=== PATIENT | female | born 1960 | race Caucasian/White ===

== ENCOUNTER 2024-01-15 22:52 | Emergency (ER) | payer SELFPAY ==
[~2024-01-15 22:52] MED LIST: valACYclovir HCL 1,000 MG TABLET ONE
[2024-01-16] MEDS ORDERED: predniSONE 20 MG TAB ONE (03:30)
--- NOTE | 2024-02-29 15:26 | CT ---
EXAM: CT Angiography Head Without and With Intravenous Contrast CLINICAL HISTORY: lt sided numbness TECHNIQUE: Axial computed tomographic angiography images of the head without and with intravenous contrast. CTDI is 42.95 mGy and DLP is 763.35 mGy-cm. This CT exam was performed using one or more of the following dose reduction techniques: automated exposure control, adjustment of the mA and/or kV according to patient size, and/or use of iterative reconstruction technique. MIP reconstructed images were created and reviewed. COMPARISON: No relevant prior studies available. FINDINGS: VASCULATURE: The dural venous sinuses are patent. Right internal carotid artery:No acute findings. Intracranial segment is patent with no significant stenosis. No aneurysm. Right anterior cerebral artery:Unremarkable. No occlusion or significant stenosis. No aneurysm. Right middle cerebral artery:Unremarkable. No occlusion or significant stenosis. No aneurysm. Right posterior cerebral artery:Unremarkable. No occlusion or significant stenosis. No aneurysm. Right vertebral artery:Unremarkable as visualized. Left internal carotid artery:No acute findings. Intracranial segment is patent with no significant stenosis. No aneurysm. Left anterior cerebral artery:Unremarkable. No occlusion or significant stenosis. No aneurysm. Left middle cerebral artery:Unremarkable. No occlusion or significant stenosis. No aneurysm. Left posterior cerebral artery:Unremarkable. No occlusion or significant stenosis. No aneurysm. Left vertebral artery:Unremarkable as visualized. Basilar artery:Unremarkable. No occlusion or significant stenosis. No aneurysm. HEAD: Brain:No acute findings. No hemorrhage. No edema. Normal enhancement. Ventricles:Unremarkable. No ventriculomegaly. Bones/joints:No acute fracture. Soft tissues:Unremarkable. Sinuses:Unremarkable as visualized. No acute sinusitis. Mastoid air cells:Unremarkable as visualized. No mastoid effusion. IMPRESSION: Negative CT angiogram of the head. EXAM: CT Angiography Neck With Intravenous Contrast CLINICAL HISTORY: lt sided numbness TECHNIQUE: Routine carotid CT angiography protocol was performed with intravenous contrast. NASCET criteria using the distal ICAs for comparison were used for evaluation of stenoses. CTDI is 45.95 mGy and DLP is 763.35 mGy-cm. This CT exam was performed using one or more of the following dose reduction techniques: automated exposure control, adjustment of the mA and/or kV according to patient size, and/or use of iterative reconstruction technique. MIP reconstructed images were created and reviewed. COMPARISON: None. FINDINGS: VASCULATURE: Right common carotid artery:Unremarkable. No occlusion or significant stenosis. No dissection. Right internal carotid artery:Unremarkable. Extracranial segment is patent with no occlusion or significant stenosis. No dissection. Right external carotid artery:Unremarkable. No occlusion. Right vertebral artery:Unremarkable. No occlusion or significant stenosis. No dissection. Left common carotid artery:Unremarkable. No occlusion or significant stenosis. No dissection. Left internal carotid artery:Unremarkable. Extracranial segment is patent with no occlusion or significant stenosis. No dissection. Left external carotid artery:Unremarkable. No occlusion. Left vertebral artery:Unremarkable. No occlusion or significant stenosis. No dissection. NECK: Bones/joints: Moderately severe left C5-6 neural foraminal stenosis. No acute fracture. Soft tissues:Unremarkable. Lung apices:Clear. CAROTID STENOSIS REFERENCE USING NASCET CRITERIA: %ICA stenosis = (1 - narrowest ICA diameter/diameter of distal cervical ICA) x 100. Mild - <50%stenosis. Moderate - 50-69%stenosis. Severe - 70-94%stenosis. Near occlusion - 95-99%stenosis. Occluded - 100%stenosis. IMPRESSION: Negative CTA neck. Radiologist: Xena Silva MD Electronically Signed: 01/16/24 02:42 Study ready at 01:53 and initial results transmitted at 02:42 Results also transmitted to Film Room, Film Room @ [phone] (Fax) VOI
== END 2024-01-16 03:45 | disposition home or self-care (01) ==
LOC: EC 22:52
DX: G51.0 Bell's palsy (principal)
CPT/HCPCS: 70496; 70498; 93005; 99284

== ENCOUNTER → 2024-08-30 | Outpatient (CLI) | payer MEDICARE ==
--- NOTE | 2024-08-30 08:44 | MM ---
Reason for Exam: Clinical finding. Last mammogram was performed 17 year(s) and 7 month(s) ago. Patient History: Menarche at age 12. First Full-Term at age 19. Risk Values: Yazmin 5 year model risk: 1.5%. NCI Lifetime model risk: 5.6%. Tissue Density: The breasts are heterogeneously dense, which may obscure small masses. Findings: Analyzed By CAD. There is a l large spiculated mass in the upper outer quadrant of the right breast measuring 3.3 cm with enlarged lymph nodes in the right axilla. Benign appearing calcifications. Overall Assessment: Incomplete: need additional imaging evaluation, BI-RAD 0 Management: Diagnostic Breast Ultrasound of the right breast. . Results were given to the patient verbally at the time of exam. Patient should continue monthly self-breast exams. A clinical breast exam by your physician is recommended on an annual basis. This exam should not preclude additional follow-up of suspicious palpable abnormalities. Note on Yazmin scores and lifetime risk: 1. A Yazmin score greater than 3% is considered moderate risk. If this is the case, consider specialist referral to assess eligibility for a risk reducing agent. 2. If overall lifetime risk for the development of breast cancer is 20% or higher, the patient may qualify for future screening with alternating mammogram and breast MRI. [facility], , 08/30/2024 8:41 AM. Electronically signed and approved by: Valdemar Mckeon M.D. Radiologis
--- NOTE | 2024-08-30 09:21 | USB ---
Reason for Exam: Clinical finding. Patient History: Menarche at age 12. First Full-Term at age 19. Right ovary removed at age 15. Postmenopausal. Risk Values: Yazmin 5 year model risk: 1.5%. NCI Lifetime model risk: 5.6%. Technique: Method: Targeted. Prior Study Comparison: 12/26/2003 Bilateral Screening Mammogram, [facility]. 01/20/2007 Bilateral Screening Mammogram, [facility]. Findings: The upper outer quadrant of the right breast, the axilla of the right breast and the retroareolar of the right breast were scanned. A targeted right upper quadrant of the right breast, axilla and retro-areolar region were reviewed. There is a large spiculated mass corresponding the mammographic abnormality at the level o'clock position 5 cm from the nipple measuring 3 x 2.9 cm highly suspicious. There are multiple lymph nodes in the right axilla felt to be suspicious. Overall Assessment: Highly suggestive of malignancy, BI-RAD 5 Management: Ultrasound Core Biopsy of the right breast. A clinical breast exam by your physician is recommended on an annual basis and results should be correlated with mammographic findings. This exam should not preclude additional follow-up of suspicious palpable abnormalities. Results were given to the patient verbally at the time of exam. [facility], , 08/30/2024 9:17 AM. Electronically signed and approved by: Valdemar Mckeon M.D. Radiologis
== END | disposition home or self-care (01) ==
LOC: RADMAMWWP 08:13
PROVIDERS: ATTEND Family Medicine
DX: R92.1 Mammographic calcification found on diagnostic imaging of breast (principal); R92.333 Mammographic heterogeneous density, bilateral breasts; N63.10 Unspecified lump in the right breast, unspecified quadrant; Z78.0 Asymptomatic menopausal state
CPT/HCPCS: 77062; 77066

== ENCOUNTER → 2024-09-07 | Day surgery (SDC) | payer MEDICARE ==
--- NOTE | 2024-09-07 11:46 | MM ---
Reason for Exam: Post Procedure Mammogram. Last screening mammogram was performed less than 1 month ago. Patient History: Menarche at age 12. First Full-Term at age 19. Right ovary removed at age 15. Postmenopausal. Risk Values: Yazmin 5 year model risk: 1.5%. NCI Lifetime model risk: 5.6%. Prior Study Comparison: 12/26/2003 Bilateral Screening Mammogram, [facility]. 01/20/2007 Bilateral Screening Mammogram, [facility]. 08/30/2024 Bilateral MG 3D diag mammo w/cad [facility], [facility]. Tissue Density: Right: The breasts are heterogeneously dense, which may obscure small masses. Findings: Spiculated mass upper outer quadrant right breast status post biopsy was demonstrated with microclip marker in place. 2 clips are seen within a sampled right axillary lymph node. 2 clips were deployed because one of the clips could not be clearly visualized at ultrasound. Overall Assessment: Highly suggestive of malignancy, BI-RAD 5 Management: Ultrasound Core Biopsy of the right breast. . Results were given to the patient verbally at the time of exam. Patient should continue monthly self-breast exams. A clinical breast exam by your physician is recommended on an annual basis. This exam should not preclude additional follow-up of suspicious palpable abnormalities. Note on Yazmin scores and lifetime risk: 1. A Yazmin score greater than 3% is considered moderate risk. If this is the case, consider specialist referral to assess eligibility for a risk reducing agent. 2. If overall lifetime risk for the development of breast cancer is 20% or higher, the patient may qualify for future screening with alternating mammogram and breast MRI. [facility], , 09/07/2024 11:43 AM. Electronically signed and approved by: Favian Rubalcava M.D. Radiologis
--- NOTE | 2024-09-11 12:20 | USB ---
Risk Values: Yazmin 5 year model risk: 1.5%. NCI Lifetime model risk: 5.6%. Prior Study Comparison: 12/26/2003 Bilateral Screening Mammogram, [facility]. 01/20/2007 Bilateral Screening Mammogram, [facility]. 08/30/2024 Right US breast limited RT, [facility]. 08/30/2024 Bilateral MG 3D diag mammo w/cad [facility], [facility]. Pathology Description: Location: axilla. Marker Left Behind. Needle Type: Celero Cores: 3 Gauge: 12 2 hydromark coils used due to unable to see if first clip deployed. Pathology Description: Location: 11 o'clock. Marker Left Behind. Needle Type: Celero Cores: 3 Gauge: 12 The procedure of ultrasound guided core biopsy was explained to the patient. Benefits, alternatives, and risks were discussed. An informed consent was then obtained. The patient was placed in supine positioning for imaging and for the procedure. The overlying skin was prepped and draped in usual sterile fashion. Lidocaine buffered with bicarbonate was used as anesthetic into the skin and subcutaneous tissue up to area of concern in the right breast 11 o'clock and an enlarged right axillary lymph node. A nilo was made with surgical scalpel. Under ultrasound guidance, a 12-gauge vacuum assisted biopsy gun device was used to obtain 4 core samples from the 11:00 mass and subsequently 3 core samples from the abnormal right axillary lymph node. Following this, a butterfly biopsy clip was left in mass lesion and 2 coil clips were deployed in the abnormal axillary lymph node. A second clip was utilized given the fact that the initial deployment clip could not be clearly visualized. The patient tolerated the procedure well without any immediate complication. The patient was kept in the radiology department for short stay after the procedure and then discharged home in stable condition. Postprocedure mammogram: The patient was transferred to mammography for physician ordered post procedure mammogram for clip placement verification. Post procedure mammogram demonstrates the clip in appropriate placement. Impression: Successful two site, uncomplicated ultrasound guided core biopsy of area of concern in the right breast and right axilla, full pathology results to follow. [facility], , 09/07/2024 12:21 PM. Pathology Results: Result: Malignant, Invasive ductal carcinoma. Pathology and radiology were reviewed. Findings are concordant. A. RIGHT BREAST, 11:00, ULTRASOUND GUIDED NEEDLE CORE BIOPSY: Invasive poorly differentiated ductal carcinoma (Grade 3). See Surgical Pathology Cancer Case Summary and Comment. B. RIGHT AXILLA LYMPH NODE, CORE BIOPSY: Invasive poorly differentiated ductal carcinoma (Grade 3). See Surgical Pathology Cancer Case Summary and Comment. Overall Assessment: Malignant Management: Surgical Consultation of the right breast. Electronically signed and approved by: Favian Rubalcava M.D. Radiologis
== END ==
LOC: RADUSWWP 10:03
PROVIDERS: ATTEND Surgery
DX: C50.411 Malignant neoplasm of upper-outer quadrant of right female breast (principal); R92.8 Other abnormal and inconclusive findings on diagnostic imaging of breast; Z78.0 Asymptomatic menopausal state; Z90.721 Acquired absence of ovaries, unilateral
CPT/HCPCS: 77065; 19083; 19084; A4648; 88305; 88341; 88342

== ENCOUNTER → 2024-09-12 | Outpatient (CLI) | payer MEDICARE ==
[2024-09-12 14:18] VITALS: BP 187/98; PULSE 89; RESP 16; TEMP 98.1
--- NOTE | 2024-09-12 14:29 | P.GSCN ---
History of Present Illness Consult date: 09/12/24 Reason for Consult: right breast invasive ductal cancer Requesting physician: Fidel Schofield History of present illness: Neetu is a 64 year old female seen in consultation for Dr. Schofield regarding a biopsy proven right breast invasive ductal cancer with a (+) node. She had a bilateral mammogram 08-30-24 which led to a right breast ultrasound. A lesion 3 by 2.9 cm noted. This led to an ultrasound guided biopsy which was done on 09-07-24. She was able to feel a lesion in her right breast. She had not had a mammogram for over 15 years. She was able to feel the lesion for about 2 weeks prior to the workup being initiated. Has not had any surgery on her breast. She is not complaining of any recent trauma or infection in the breast. She is not complaining of any nipple discharge or skin changes. Caffeine: 2 cups coffee/day nicotine: 2 cigarettes day for 40 years, stopped 2 weeks ago chcolate: occasional BCP: none hormones: none note Dr. Schofield 08-27-24 reviewed Family History: sister: cancer Hormonal History: menarche: 12 M2, age at : 19, breat fed: yes menopause: 49 Surgical history: ovarian cyst at 14 Medical History: ? HTN Social History: nicotine: as above alcohol: vodka nightly drugs: Marijuana occasional, no other drugs Review of Systems - Constitutional Denies fever, Denies weight loss - EENT Eyes: denies blurred vision Ears: bilateral: decreased hearing, tinnitus Ears, nose, mouth and throat: Denies dysphagia - Breasts bilateral: as per HPI - Cardiovascular Denies chest pain, Denies shortness of breath - Respiratory Denies cough, Denies 7 - Gastrointestinal Reports as per HPI - Genitourinary Genitourinary: Denies dysuria, Denies hematuria Menstruation: Reports postmenopausal - Musculoskeletal Reports as per HPI - Integumentary Denies rash, Denies unusual bruising - Neurological Denies headaches, Denies syncope - Psychiatric Reports as per HPI - Endocrine Reports as per HPI - Hematologic/Lymphatic Reports as per HPI - Allergic/Immunologic Reports as per HPI Past Medical History Past Medical History: No Reported History History of Any Multi-Drug Resistant Organisms: None Reported Past Surgical History: Section Additional Past Surgical History / Comment(s): Ovarian cyst removed Past Anesthesia/Blood Transfusion Reactions: No Reported Reaction Past Psychological History: No Psychological Hx Reported Smoking Status: Current every day smoker Past Alcohol Use History: Daily Additional Past Alcohol Use History / Comment(s): alcohol - 2 drinks daily. Quit smoking cigarettes and alcohol -08-17-24 Past Drug Use History: Marijuana Additional Drug Use History / Comment(s): occasssinal Medications and Allergies Home Medications Medication Instructions Recorded Confirmed Type No Known Home Medications 08/31/24 08/31/24 History Allergies Allergy/AdvReac Type Severity Reaction Status Date / Time azithromycin [From Zithromax] Allergy Rash/Hives Verified 08/31/24 10:54 Surgical - Exam - General no distress - Eyes normal ocular movement - Neck trachea midline - Respiratory normal respiratory effort, clear to auscultation - Cardiovascular Rhythm: regular Heart Sounds: normal: S1, S2 - Abdomen Abdomen: soft, non tender, no guarding, no rigid, no rebound - Integumentary normal turgor - Neurologic no disoriented, no combative - Musculoskeletal normal gait - Psychiatric oriented to time, oriented to person, oriented to place, speech is normal, memory intact Breast Exam: BRA: 36D Inspection: Ecchymosis right breast upper outer quadrant area related to biopsy Palpation: Right breast: Multi positional exam fullness approximately 3 x 4 cm in size upper outer quadrant, otherwise no dominant masses or nodules of concern Right axilla: No discrete adenopathy of concern Left breast: Multi positional exam fibrocystic changes no dominant masses or nodules of concern Left axilla: No adenopathy of concern Results Mammogram and ultrasound reviewed personally and discussed with radiology Dr. Armida Alvarez [facility], lesion right breast as noted approximately 3 cm in size Pathology reviewed ER/MI and HER2/shawnee are pending Assessment and Plan Assessment: Impression: Right breast invasive ductal carcinoma upper outer quadrant Plan: Await tumor markers Presentation of case at tumor board CC: Dr. Schofield
== END ==
LOC: WWCWWP 12:52
PROVIDERS: ATTEND Surgery
DX: Z12.31 Encounter for screening mammogram for malignant neoplasm of breast (principal); C50.411 Malignant neoplasm of upper-outer quadrant of right female breast; Z87.891 Personal history of nicotine dependence; Z88.1 Allergy status to other antibiotic agents

== ENCOUNTER → 2024-09-20 | Outpatient (CLI) | payer MEDICARE ==
--- NOTE | 2024-09-23 10:22 | PE ---
EXAMINATION TYPE: PET CT fusion skull to thigh DATE OF EXAM: 09/20/2024 CLINICAL INDICATION:Female, 64 years old with history of C50.811 breast ca; TECHNIQUE: Following the intravenous administration of 11.1 mCi of F-18 FDG, whole body images are performed from the skull base to the Mid thigh. Images are reviewed on the computer in the coronal, axial, and sagittal planes. Reconstructed rotating images are created on independent workstation and reviewed on the computer. A non-contrast CT is performed in conjunction with the PET scan. Glucose level 121 mg/dL CT DLP: 390 mGycm, Automated exposure control for dose reduction was used. COMPARISON: CT None, PET/CT None, MRI: None FINDINGS: Mediastinal SUV mean is 1.8. Hepatic parenchyma SUV mean is 2.6. SKULL BASE AND NECK: No suspicious radiotracer activity. Physiologic uptake within the bilateral palatine tonsils. CHEST, MEDIASTINUM, AND HILAR REGION: * Enlarged lymph nodes in the right axilla measuring up to 17 mm in short axis max SUV 13.4 * Right breast mass measuring 34 x 30 mm Max SUV 6.9 with probably peripheral FDG activity. * Small satellite focus of FDG activity superior to the dominant mass max SUV 3.2 Measuring 7 mm. * Left lower lung medial pulmonary nodule measuring 6 mm. Max SUV 1.7. * Left upper lobe lateral pulmonary nodule measuring 4 mm Max SUV 0.7. ABDOMEN AND PELVIS: No suspicious radiotracer activity. MUSCULOSKELETAL STRUCTURES: No suspicious radiotracer activity. OTHER CT: Atherosclerosis of the carotid bifurcations. The scattered colonic diverticula. Fat-containing umbili kyle hernia. Heart is mildly enlarged for size. Transitional vertebrae in the lower lumbar spine. IMPRESSION: Findings compatible with primary breast malignancy with multiple FDG avid right axillary lymph nodes. No evidence of distant metastatic disease at this time. Indeterminate left upper lung and left lower lobe pulmonary nodules. Possibly incidental/granulomatou s changes. Attention on follow-up imaging. [facility], , 09/23/2024 10:20 AM
== END | disposition home or self-care (01) ==
LOC: RADPETMAIN 07:03
PROVIDERS: ATTEND Internal Medicine Hematology & Oncology
DX: C50.811 Malignant neoplasm of overlapping sites of right female breast (principal); R59.0 Localized enlarged lymph nodes
CPT/HCPCS: 78815; A9552

== ENCOUNTER 2024-10-18 10:36 | Day surgery (SDC) | payer MEDICARE ==
[2024-10-15 10:37] VITALS: BMI 28.3
[~2024-10-18 10:36] MED LIST changes: +Pre Op ABX Message 1 EACH MISC MISCELLANE ONE; -valACYclovir HCL 1,000 MG TABLET ONE
[2024-10-18] MEDS: IV FLUID CONTINUATION 1,000 ML IV ONE (11:09)
[2024-10-18] MEDS: LACTATED RINGERS 1,000 ML IV SCH (11:22)
[2024-10-18] MEDS: ONDANSETRON 4 MG/2 ML VIAL IVP STA (11:22)
[2024-10-18] MEDS: MIDAZOLAM 2 MG/2 ML VIAL IV ONE (11:38)
[2024-10-18] MEDS ORDERED: PROPOFOL 10 MG/ML 20 ML VIAL IV ONE (12:44)
[2024-10-18] MEDS ORDERED: fentaNYL (PF) 50 MCG/ML 2 ML AMP ONE (12:44)
[2024-10-18] MEDS ORDERED: LIDOCAINE 1% INJ 10MG/ML (20 ML MDV) ONE (12:44)
[2024-10-18] MEDS ORDERED: SUCCINYLCHOLINE CHLORIDE 200 MG/10 ML VIAL IV ONE (12:44)
[2024-10-18] MEDS ORDERED: MIDAZOLAM 2 MG/2 ML VIAL ONE (12:44)
[2024-10-18] MEDS ORDERED: PHENYLEPHRINE-0.9% NACL SYG 1,000 MCG/10 ML SYRINGE ONE (12:44)
[2024-10-18] MEDS: BUPIVACAINE (PF) 0.25% 30 ML VIAL SQ ONE (13:07)
[2024-10-18] MEDS: LACTATED RINGERS 1,000 ML IV ONE (13:17)
--- NOTE | 2024-10-18 13:33 | P.OP ---
Date of Procedure: 10/18/24 Preoperative Diagnosis: Breast cancer Postoperative Diagnosis: Breast cancer Procedure(s) Performed: Mediport placement with fluoroscopic guidance Anesthesia: MAC Surgeon: Cuco Rivas Pathology: none sent Condition: stable Disposition: same day Indications for Procedure: 64-year-old female undergoing chemotherapy secondary to breast cancer. Plan is for Mediport placement. Risks, benefits and alternatives were provided to the patient. All questions answered prior to attending the operating suite. Operative Findings: Appropriate flush and withdrawal from Mediport site Description of Procedure: Patient was brought to the operating suite and placed in supine position on the operating table. Sedation was provided by anesthesia and the patient underwent endotracheal intubation. Patient was then prepped and draped in regular sterile fashion. Local anesthetic was administered and the right subclavian vein was entered on first attempt. Guidewire was then placed and location was confirmed under fluoroscopic guidance. At this point local anesthetic was administered to create the pocket for the port. Incision was made and dissection was carried to the prepectoralis fascia. Dissection was carried to free up space for the port. At this point a small incision was made at the guidewire insertion site and a tunnel was created between this guidewire site and the pocket and catheter was placed. Dilator sheath was then placed over the guidewire under fluoroscopic guidance and catheter was then placed. Catheter was noted to be in appropriate position and was connected to the port and port was placed in the pocket. Appropriate flush and withdrawal was noted from the port site. The port was then secured to the prepectoralis fascia in 2 separate locations. Fluoroscopic guidance confirmed location with no kinks in the catheter. Heparin lock was placed. The wound was then closed in layers with 3-0 Vicryl and 4-0 Vicryl subcuticular suture. Sterile dressing was applied. The patient was then taken to postanesthesia care unit in stable condition with pending chest x-ray.
[2024-10-18 13:38] VITALS: RESP 16; TEMP 97.2
--- NOTE | 2024-10-18 13:55 | FL ---
EXAMINATION TYPE: FL guided central line placemt DATE OF EXAM: 10/18/2024 FLUOROSCOPY fl 15.8 sec dap .[id number] rt side port a cath insertion There are 2 images that document the procedure. [facility], , 10/18/2024 1:52 PM
--- NOTE | 2024-10-18 14:32 | XR ---
EXAMINATION TYPE: XR chest 1V confirm line [facility] DATE OF EXAM: 10/18/2024 COMPARISON: NONE CLINICAL INDICATION: Female, 64 years old with history of Mediport placement; TECHNIQUE: Single frontal view of the chest is obtained. FINDINGS: Right anterior chest wall injection port with subclavian access and catheter tip at the SVC level. He art normal size. Aorta and pulmonary vasculature within normal limits. No consolidation or pleural ef fusion. No pneumothorax. IMPRESSION: Right chest wall Mediport placement with subclavian access and catheter tip near the mid SVC level. No acute cardiopulmonary process. [facility], , 10/18/2024 2:30 PM
[2024-10-18 14:44] VITALS: BP 131/85; PULSE 76
== END 2024-10-18 15:09 | disposition home or self-care (01) ==
LOC: OR 10:36
PROVIDERS: ATTEND Surgery
DX: C50.411 Malignant neoplasm of upper-outer quadrant of right female breast (principal); I10 Essential (primary) hypertension; E78.5 Hyperlipidemia, unspecified; Z17.1 Estrogen receptor negative status [ER-]; Z46.82 Encounter for fitting and adjustment of non-vascular catheter; Z45.2 Encounter for adjustment and management of vascular access device; Z88.1 Allergy status to other antibiotic agents; Z87.891 Personal history of nicotine dependence; Z79.899 Other long term (current) drug therapy
CPT/HCPCS: 77001; 36561; C1788; J2250; J0330; J2405; J2003; J3010; J1642; J2704; J2371; J0665

== ENCOUNTER → 2024-10-18 | Outpatient (CLI) | payer MEDICARE ==
[2024-10-18 16:32] LABS: ALT 56 U/L (8-44); AST 45 U/L (13-35); Albumin 4.7 g/dL (3.8-4.9); Albumin/Globulin Ratio 1.62 Ratio (1.60-3.17); Alkaline Phosphatase 65 U/L (41-126); BUN/Creat Ratio 24.67 Ratio (12.00-20.00); Blood Urea Nitrogen 22.2 mg/dL (9.0-27.0); Calcium 9.8 mg/dL (8.7-10.3); Carbon Dioxide 23.6 mmol/L (21.6-31.8); Chloride 102 mmol/L (96-109); Chol/HDL Ratio 3.61 Ratio; Globulin 2.9 g/dL (1.6-3.3); Glucose 116 mg/dL (70-110); Potassium 4.7 mmol/L (3.5-5.5); Sodium 140 mmol/L (135-145); Total Bilirubin 0.9 mg/dL (0.3-1.2); Total Protein 7.6 g/dL (6.2-8.2)
== END | disposition home or self-care (01) ==
LOC: LABWHC1 10:17
PROVIDERS: ATTEND Family Medicine
DX: I10 Essential (primary) hypertension (principal)
CPT/HCPCS: 36415; 80053; 80061

== ENCOUNTER → 2025-01-04 | Outpatient (CLI) | payer MEDICARE ==
--- NOTE | 2025-01-04 12:48 | USB ---
Reason for Exam: Follow-up at short interval from prior study. Patient History: Menarche at age 12. First Full-Term at age 19. Right ovary removed at age 15. Postmenopausal. Breast cancer, right, age 64. 09/07/2024, US biopsy breast add'l VAD RT on the Right side. 09/07/2024, Malignant US biopsy breast VAD RT on the right side. Technique: Method: Targeted. Prior Study Comparison: 01/20/2007 Bilateral Screening Mammogram, [facility]. 08/30/2024 Bilateral MG 3D diag mammo w/cad [facility], [facility]. 09/07/2024 Right MG diagnostic mammo RT wo CAD, [facility]. Findings: The upper outer quadrant of the right breast, the axilla of the right breast and the retroareolar of the right breast were scanned. Ultrasound targeted to the patient's biopsy proven right breast cancer 11:00 position. Additional scanning of the subareolar region and axilla. At the 11:00 position, 5 cm from the nipple, there is biopsy proven malignancy measuring 3.1 x 2.1 x 1.7 cm. This is in comparison to 3.2 x 2.9 x 2.4 cm, previously. A microclip is present here. Right axillary lymph node measures 2.1 x 0.8 x 0.8 cm with cortical thickness of 6 mm. Previously measuring 2.8 x 2.1 x 1.5 cm and cortical thickness of 1.3 cm. Overall Assessment: Known biopsy proven malignancy, BI-RAD 6 Management: Surgical Consultation of the right breast. Decreasing size of patient's 11:00 right breast cancer and right axillary adenopathy following neoadjuvant chemotherapy. Residual mass and residual thickened lymph node remain. Results were given to the patient verbally at the time of exam. [facility], , 01/04/2025 12:45 PM. Electronically signed and approved by: Nacho Hurst M.D. Radiologist
== END | disposition home or self-care (01) ==
LOC: RADUSWWP 12:14
PROVIDERS: ATTEND Internal Medicine Hematology & Oncology
DX: C50.411 Malignant neoplasm of upper-outer quadrant of right female breast (principal); I10 Essential (primary) hypertension; E78.5 Hyperlipidemia, unspecified; Z17.1 Estrogen receptor negative status [ER-]; Z78.0 Asymptomatic menopausal state